=== PATIENT | male | born 1960 | race Caucasian/White ===

== ENCOUNTER 2020-04-27 12:10 | Inpatient (IN) | payer OTHER ==
[~2020-04-27] VITALS: Ht 182.9 cm; Wt 124.3 kg
[2020-04-28 00:43] VITALS: BP 118/56
[2020-04-28 01:56] LABS: HEMOGLOBIN 14.7 gm/dL (14.0-18.0); MCHC 33.3 g/dL (28.0-37.0); RBC 4.73 mil/uL (4.50-6.00); RDW 14.1 % (10.5-14.5); WBC 8.7 thou/uL (4.0-11.0)
[2020-04-28 02:05] LABS: APTT 31.6 Seconds (24.5-32.8); PROTIME 10.5 Seconds (9.3-11.4)
[2020-04-28] MEDS ORDERED: ATORVASTATIN CA80 MG PO (02:29)
[2020-04-28] MEDS ORDERED: ASA81BEC PO (02:29)
[2020-04-28] MEDS ORDERED: EFFIENT10 MG PO (02:30)
[2020-04-28] MEDS ORDERED: JENTADUETO 2.51 EAC2 PO (02:31)
[2020-04-28] MEDS ORDERED: LOPRESSOR50 PO (02:33)
[2020-04-28] MEDS ORDERED: ZESTRIL10 MG PO (02:34)
[2020-04-28 05:15] VITALS: BP 112/58
--- NOTE | 2020-04-28 05:57 | NUR ---
PATIENT ARRIVED AT 0030 PER EMS FROM [facility]. ADMISSION PROCESS COMPLETE. RESTARTED HEPERIN GTTS PER PROTOCOL. MEDS GIVEN PER EMAR. PT UP AD YANCI TO BATHROOM; STEADY GAIT. PLANS FOR OPEN HEART SURGERY MONDAY. NO OTHER COMPLAINTS OF CHEST PAIN. CONTINUING TO ASSESS ACCORDING TO POC.
[2020-04-28 09:51] VITALS: BP 111/61
[2020-04-28 12:42] VITALS: BP 136/55
--- NOTE | 2020-04-28 14:10 | NUR ---
RECIEVED REPORT FROM DAVID HICKMAN.
[2020-04-28 16:40] VITALS: BP 115/66
--- NOTE | 2020-04-28 17:19 | NUR ---
Patient admits as transfer from [facility]. 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 He reports employment aware he is at hospital. PCP Dr Meadows. Patient reports lives in independent home with . Few steps to enter home then all needs on one level. able to assist at dc. Casemgt following.
[2020-04-28 19:31] VITALS: BP 125/64
[2020-04-29] VITALS (28 sets, daily range): BP systolic 99–142; BP diastolic 52–78
--- NOTE | 2020-04-29 07:35 | NUR ---
PATIEINTS CARES WERE ASSUMED AT SHIFT CHANGE. PATIENT WAS ASSESSED AND MEDS WERE PASSED. PATIENT WAS CLEANSED FOR SURGERY AT 2230 AND AGAIN AT 0530. WITH LINENS CHENGED AND THE GOWN. PATIENT WAS PICKED UP BY PACU AT 0600 FOR SURGERY.PATIENT HAD AN UNEVENTFUL NIGHT.
[2020-04-29 11:43] LABS: MCH 30.7 pg (26.0-34.0); RBC 2.78 mil/uL (4.50-6.00); WBC 12.8 thou/uL (4.0-11.0)
[2020-04-29 11:51] LABS: HEMOGLOBIN 8.5 gm/dL (14.0-18.0)
[2020-04-29 11:52] LABS: HEMATOCRIT 25.9 % (42.0-52.0)
[2020-04-29 11:57] LABS: FIBRINOGEN 135.3 mg/dL (210-360); PROTIME 16.7 Seconds (9.3-11.4)
[2020-04-29 12:11] LABS: APTT 27.5 Seconds (24.5-32.8); INR 1.6
[2020-04-29 12:22] LABS: POC BE -8 mmol/L (-2.0 to +3.0); POC CA IONIZED 3.2 mg/dL (4.5-5.3); POC GLUCOSE 105 mg/dL (70-99); POC HCO3 17.7 mmol/L (22.0-26.0); POC HEMOGLOBIN 8.8 g/dL (14.0-18.0); POC POTASSIUM 2.8 mmol/L (3.5-5.1); POC SODIUM 149 mmol/L (136-145); POC pCO2 32.1 mmHg (35.0-45.0); POC pH 7.351 (7.360-7.450)
[2020-04-29 12:22] LABS: POC BE -1 mmol/L (-2.0 to +3.0); POC CA IONIZED 5.1 mg/dL (4.5-5.3); POC GLUCOSE 143 mg/dL (70-99); POC HCO3 24.9 mmol/L (22.0-26.0); POC HEMOGLOBIN 12.9 g/dL (14.0-18.0); POC POTASSIUM 4.1 mmol/L (3.5-5.1); POC SODIUM 138 mmol/L (136-145); POC pCO2 44.5 mmHg (35.0-45.0); POC pH 7.356 (7.360-7.450)
[2020-04-29 12:22] LABS: POC BE 0 mmol/L (-2.0 to +3.0); POC CA IONIZED 4.9 mg/dL (4.5-5.3); POC GLUCOSE 145 mg/dL (70-99); POC HCO3 25.2 mmol/L (22.0-26.0); POC HEMOGLOBIN 14.6 g/dL (14.0-18.0); POC POTASSIUM 4.3 mmol/L (3.5-5.1); POC SODIUM 138 mmol/L (136-145); POC pCO2 42.3 mmHg (35.0-45.0); POC pH 7.384 (7.360-7.450)
[2020-04-29 12:22] LABS: POC BE -2 mmol/L (-2.0 to +3.0); POC CA IONIZED 4.5 mg/dL (4.5-5.3); POC GLUCOSE 149 mg/dL (70-99); POC HCO3 22.9 mmol/L (22.0-26.0); POC HEMOGLOBIN 11.6 g/dL (14.0-18.0); POC POTASSIUM 4.1 mmol/L (3.5-5.1); POC SODIUM 136 mmol/L (136-145); POC pCO2 38.3 mmHg (35.0-45.0); POC pH 7.385 (7.360-7.450)
[2020-04-29 12:22] LABS: POC BE -1 mmol/L (-2.0 to +3.0); POC CA IONIZED 4.5 mg/dL (4.5-5.3); POC GLUCOSE 147 mg/dL (70-99); POC HCO3 24.2 mmol/L (22.0-26.0); POC HEMOGLOBIN 12.6 g/dL (14.0-18.0); POC POTASSIUM 3.9 mmol/L (3.5-5.1); POC SODIUM 138 mmol/L (136-145); POC pCO2 39.1 mmHg (35.0-45.0); POC pH 7.399 (7.360-7.450)
[2020-04-29 12:22] LABS: POC BE 1 mmol/L (-2.0 to +3.0); POC CA IONIZED 4.3 mg/dL (4.5-5.3); POC GLUCOSE 131 mg/dL (70-99); POC HCO3 25.5 mmol/L (22.0-26.0); POC HEMOGLOBIN 12.2 g/dL (14.0-18.0); POC POTASSIUM 4.1 mmol/L (3.5-5.1); POC SODIUM 136 mmol/L (136-145); POC pCO2 40.5 mmHg (35.0-45.0); POC pH 7.407 (7.360-7.450)
[2020-04-29 12:22] LABS: POC BE -1 mmol/L (-2.0 to +3.0); POC CA IONIZED 4.8 mg/dL (4.5-5.3); POC GLUCOSE 147 mg/dL (70-99); POC HCO3 24.8 mmol/L (22.0-26.0); POC HEMOGLOBIN 14.6 g/dL (14.0-18.0); POC POTASSIUM 3.8 mmol/L (3.5-5.1); POC SODIUM 139 mmol/L (136-145); POC pCO2 44.5 mmHg (35.0-45.0); POC pH 7.354 (7.360-7.450)
[2020-04-29 12:22] LABS: POC BE -10 mmol/L (-2.0 to +3.0); POC CA IONIZED 2.3 mg/dL (4.5-5.3); POC GLUCOSE 85 mg/dL (70-99); POC HCO3 16.1 mmol/L (22.0-26.0); POC HEMOGLOBIN 7.5 g/dL (14.0-18.0); POC POTASSIUM 2.2 mmol/L (3.5-5.1); POC SODIUM 155 mmol/L (136-145); POC pCO2 30.2 mmHg (35.0-45.0); POC pH 7.334 (7.360-7.450)
[2020-04-29 12:25] LABS: CALCIUM 8.8 mg/dL (8.5-10.1); CREATININE 1.4 mg/dL (0.7-1.3)
[2020-04-29 12:26] LABS: POTASSIUM 4.4 mmol/L (3.5-5.1)
[2020-04-29 12:31] LABS: ALBUMIN 3.1 g/dL (3.4-5.0); TOTAL BILIRUBIN 0.4 mg/dL (0.2-1.0); TOTAL PROTEIN 5.6 g/dL (6.4-8.2)
[2020-04-29 13:20] LABS: HEMATOCRIT 42.2 % (42.0-52.0); MCH 30.5 pg (26.0-34.0); MCV 92.2 fL (80.0-100.0); RBC 4.58 mil/uL (4.50-6.00); RDW 14.3 % (10.5-14.5); WBC 21.8 thou/uL (4.0-11.0)
[2020-04-29 13:20] LABS: BE(vivo) -6.7 mmol/L (-2 to +3); HCO3 18.9 mmol/L (22.0-26.0); PCO2 38.2 mmHg (35.0-45.0); PO2 86.1 mmHg (80.0-100.0); sO2 95.8 % (92.0-98.0)
[2020-04-29 13:21] LABS: pH 7.312 (7.360-7.450)
--- NOTE | 2020-04-29 13:30 | NUR ---
1250 PATIENT ADMITTED TO ICU BED 249 DIRECTLY FROM THE OR POST CABG X2. ACCOMPANIED BY DR MADDEN, AND THE OR TEAM. ATTACHED TO VILIGIANT MONITOR, PATIENT FINANCIAL REP, SWAN AT 58-59 CM MURIEL IN THE LRA, ZEROED AND CALIBRATED. CHEST TUBE X3 TO SUCTION, NO TITLING NOTED. LAB AND ABG DRAWN. BLOOD GLUCOSE 186 AND INSULIN DRIP STARTED AT 1305. EKG DONE AT BEDSIDE. PATIENT IS DROWSEY, REASSURANCE GIVEN NODS AND SHAKES HIS HEAD.
[2020-04-29 13:32] LABS: CALCIUM 8.8 mg/dL (8.5-10.1); CREATININE 1.4 mg/dL (0.7-1.3); MAGNESIUM 2.4 mg/dL (1.8-2.4); POTASSIUM 4.6 mmol/L (3.5-5.1)
[2020-04-29 13:34] LABS: APTT 24.5 Seconds (24.5-32.8); INR 1.1; PROTIME 11.4 Seconds (9.3-11.4)
[2020-04-29 15:21] LABS: HCO3 15.7 mmol/L (22.0-26.0); PCO2 27.7 mmHg (35.0-45.0); PO2 157.2 mmHg (80.0-100.0)
--- NOTE | 2020-04-29 15:40 | EKG ---
[place] [address] [facility] [place] [address] ELECTROCARDIOGRAM REPORT Name: BEN JANE Room #: 249-P ADM IN M.R.#: [id number] Admission: 04/28/20 Attend Phys: Elmer Garcias MD Discharge: Date of : 62 Report #: [id number] [facility] Test Date: 2020-04-29 Test Time: 13:25:42 Pat Name: BEN JANE Department: Room: 249 P Gender: M Injection Molder: GIOVANNI : 1960 Requested By: Jam Aguilar Order Number: [id number] : Ruiz Yang Measurements Intervals [place] Rate: 86 P: 40 DE: 186 QRS: -75 QRSD: 119 T: 41 QT: 400 QTc: 479 Interpretive Statements Sinus rhythm Left anterior fascicular block Compared to ECG 04/28/2020 07:48:03 Sinus bradycardia no longer present Poor R-wave progression no longer present T-wave abnormality no longer present Electronically Signed On 04-29-2020 15:40:20 SOW FARM MANAGER by Ruiz Yang [email or web address] <ELECTRONICALLY SIGNED> By: Ruiz Yang MD, [facility] 04/29/20 1540 1325 1325 Ruiz Yang MD, [facility] /EPI
[2020-04-29 16:11] LABS: BE(vivo) -12.7 mmol/L (-2 to +3); PO2 108.8 mmHg (80.0-100.0); sO2 97.6 % (92.0-98.0)
[2020-04-29 16:14] LABS: PCO2 24.7 mmHg (35.0-45.0); pH 7.303 (7.360-7.450)
--- NOTE | 2020-04-29 16:18 | NUR ---
Chart reveiwed. Pt is now in ICU s/p CABGx2. Will follow along should dc needs arise.
--- NOTE | 2020-04-29 16:21 | NUR ---
DR MERCADO BY AT 1500. PATIENT AWAKE AND FOLLOWING COMMANDS. RT HERE TO DECREASE FI02 TO 50% AND PLACED PATIENT ON CPAP. PATIENT PUSHING ETT OUT WITH HIS TONGUE, ABG'S REPEATED AND CALLED TO DR MERCADO AND UPDATED ON PATIENT'S RESPIRATORY STATUS. PATIENT EXTUBATED TO 60% FS WITHOUT INCIDENT.
--- NOTE | 2020-04-29 19:26 | NUR ---
PATIENT IS PROGRESSING TOWARDS OUTCOME GOALS EVIDENT BY. EXTUBATED AT 1621 AND O2 WEANED FROM 60% FS TO 5L/NC. TOLERATING ICE CHIPS WITHOUT NAUSEA OR EMESIS. REMAINS ON THE INSULIN DRIP. PATIENT'S IN TO VISIT, UPDATED ON HER 'S CONDITION AND POC AND GIVEN THE CODE FOR INFORMATION. PAIN MANAGEMENT ADDRESS, FENTENYL GIVEN WITH SOME RELIEF, REPOSITIONED FOR COMFORT. WILL CONTINUE TO MONITOR.
[2020-04-30] VITALS (12 sets, daily range): BP systolic 103–137; BP diastolic 57–76
[2020-04-30 05:36] LABS: CALCIUM 8.4 mg/dL (8.5-10.1); CREATININE 1.4 mg/dL (0.7-1.3); MAGNESIUM 2.1 mg/dL (1.8-2.4)
[2020-04-30 05:43] LABS: HEMATOCRIT 43.5 % (42.0-52.0); HEMOGLOBIN 14.2 gm/dL (14.0-18.0); MCH 30.5 pg (26.0-34.0); MCHC 32.7 g/dL (28.0-37.0); MCV 93.3 fL (80.0-100.0); RBC 4.67 mil/uL (4.50-6.00); RDW 14.3 % (10.5-14.5); WBC 13.4 thou/uL (4.0-11.0)
--- NOTE | 2020-04-30 07:24 | EKG ---
[address] [place] [address] ELECTROCARDIOGRAM REPORT Name: BEN JANE Room #: 249-P ADM IN M.R.#: [id number] Admission: 04/28/20 Attend Phys: Elmer Garcias MD Discharge: Date of : 62 Report #: [id number] [facility] Test Date: 2020-04-30 Test Time: 07:16:57 Pat Name: BEN JANE Department: Room: 249 P Gender: M String Cutter: GIOVANNI : 1960 Requested By: Jam Aguilar Order Number: [id number] MD: Ruiz Yang Measurements Intervals [place] Rate: 90 P: -21 [place]: 164 QRS: -71 QRSD: 104 T: 48 QT: 396 QTc: 485 Interpretive Statements Sinus rhythm Abnormal R-wave progression, early transition Inferior infarct, old Compared to ECG 04/29/2020 13:25:42 Myocardial infarct finding now present Left anterior fascicular block no longer present Electronically Signed On 04-30-2020 7:24:11 WOODEN BARREL MECHANIC by Ruiz Yang [email or web address] <ELECTRONICALLY SIGNED> By: Ruiz Yang MD, [facility] 04/30/20723 5 5 Ruiz Yang MD, [facility] /EPI
--- NOTE | 2020-04-30 08:33 | NUR ---
Nutrition: S/P CABG x 2. Consult received. Will followup when out of ICU and closer to D/C to determine education needs.
--- NOTE | 2020-04-30 12:31 | NUR ---
ON-GOING ASSESSMENT: CM REVIEWED CHART. PT REMAINS ON 12L OXYGEN. 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 PT WAS ABLE TO PARTICIPATE WITH THERAPY TODAY AND THEY ARE ANTICIPATING HE WILL BE ABLE TO PROGRESS AND DISCHARGE HOME WITH FAMILY. CM WILL CONTINUE TO FOLLOW TO ASSIST NEEDED.
--- NOTE | 2020-04-30 16:10 | NUR ---
A-LINE DC'D THIS AFTERNOON, ORDERS TO TRANSFER RECEIVED. REPORT CALLED TO MARYLOU SMITH IN CCU AND PATIENT TRANSFERRED TO 209 ACCOMPANIED BY AND BELONGINGS WITH PATIENT.
[2020-05-01 04:20] VITALS: BP 133/81
[2020-05-01 06:22] LABS: HEMATOCRIT 40.3 % (42.0-52.0); HEMOGLOBIN 13.4 gm/dL (14.0-18.0); MCHC 33.2 g/dL (28.0-37.0); MCV 93.5 fL (80.0-100.0); RBC 4.31 mil/uL (4.50-6.00); RDW 14.5 % (10.5-14.5); WBC 14.2 thou/uL (4.0-11.0)
--- NOTE | 2020-05-01 06:33 | NUR ---
PATIENT SLEPT SOME OF THE NIGHT. A&OX4. FALL PRECAUTIONS IN PLACE. MEDS GIVEN PER ORDERS. TOLERATING SITTING UP IN THE CHAIR UP UNTIL BEDTIME. PT UNCOMFORTABLE MOST OF THE SHIFT; STATED MORE COMFORTABLE IN BED. CHEST TUBE REMAINS IN PLACE AND INTACT. PROGRESSING TOWARDS DISCHARGE. CONTINUING TO ASSESS CLOSESLY ACCORDING TO POC.
[2020-05-01 06:41] LABS: CALCIUM 8.6 mg/dL (8.5-10.1); CREATININE 1.2 mg/dL (0.7-1.3); POTASSIUM 4.2 mmol/L (3.5-5.1)
[2020-05-01 07:55] VITALS: BP 144/80
[2020-05-01 12:20] VITALS: BP 116/64
[2020-05-01 16:05] VITALS: BP 94/51
--- NOTE | 2020-05-01 19:47 | NUR ---
ASSUMED CARE OF PT AT SHIFT CHANGE. ASSESSMENTS CHARTED. MEDS GIVEN PER JUL. PT A&OX4, C/O PAIN TREATED WITH PO AND IV MEDS WITH PARTIAL RELIEF. MOLINA AND CHEST TUBE DC'D WITHOUT COMPLICATION. WILL CONTINUE TO MONITOR AND FOLLOW POC.
[2020-05-01 20:00] VITALS: BP 98/55
[2020-05-02] VITALS (9 sets, daily range): BP systolic 91–117; BP diastolic 52–67
--- NOTE | 2020-05-02 03:42 | NUR ---
Assumed pt care at 1900. Pt is alert and oriented. No sign of distress noted in pt. Pt is laying in bed. Initially denies pain but upon moving, pt verbalized pain to inicision site. Pain med administered upon request. Fall precaution in place. Assessment completed and documented. Scheduled meds administered to pt. Pain management. Continue to monitor. No further needs at this time. No acute events overnight.
--- NOTE | 2020-05-02 12:44 | O ---
[facility] [place] [address] OPERATIVE REPORT Name: BEN JANE Room #: 209-P ADM IN M.R.#: [id number] Admission: 04/28/20 Attend Phys: Elmer Garcias MD Discharge: Date of : 62 Report #: [id number] THIS REPORT FOR: cc: Physician not on staff Physician not on staff Galen Arce MD ~ DATE OF SERVICE: 04/29/2020 PREOPERATIVE DIAGNOSIS: Coronary artery disease. POSTOPERATIVE DIAGNOSIS: Coronary artery disease. OPERATION: Coronary artery bypass x 2 including left internal mammary artery to left anterior descending artery and saphenous vein to marginal 1 and endoscopic harvest, left greater saphenous vein. SURGEON: Dr. Glaen Arce AFTER SCHOOL CAREGIVER: SUKH Gibson ANESTHESIA: General. INDICATIONS: The patient is a 60-year-old transferred from [facility] for coronary artery bypass surgery. The patient had cardiac catheterization by Dr. Chance Bustos that showed subtotal occlusion of the left anterior descending and a high-grade lesion in the first marginal artery. There was trivial disease in other vessels. Left ventricular function is satisfactory. Left anterior descending had had previous stent placement, but these had all, but occluded. FINDINGS AND TECHNIQUE: After general anesthesia was established, saphenous vein was harvested using an endoscopic approach and prepared for use as a conduit. Exposure was obtained through median sternotomy. Left internal mammary artery was harvested from chest wall. Pericardial well was made. Cannulation sutures were placed. Heparin was given. Aorta was cannulated. Right atrium was cannulated. Cardioplegia needle was positioned in the aortic root. Retrograde cardioplegic catheter was placed in coronary sinus. Cardiopulmonary bypass was established. The aorta was cross clamped. Antegrade and retrograde cardioplegia were given. Ice was poured into the pericardial well. The heart was stopped. During electromechanical arrest, the distal anastomoses were performed and end-to-side anastomosis was made between vein and the first marginal. [facility] [address] [place] [address] OPERATIVE REPORT Name: BEN JANE Room #: 209-P [facility] IN [facility].#: [id number] Admission: 04/28/20 Attend Phys: Elmer Garcias MD Discharge: Date of : 62 Report #: [id number] cardioplegia was given. Left internal mammary artery was sewn in end-to-side fashion to the left anterior descending artery. The anastomosis was checked with the temperature technique and with the Doppler. Cold cardioplegia was given. One proximal anastomosis was performed. When this was complete, warm retrograde cardioplegia was given followed by warm continuous blood to the coronary sinus. When this infusion was complete, the crossclamp was removed, de-airing maneuvers were performed. The anastomoses were inspected and found to be satisfactory. As the patient warmed, nice cardiac activity resumed, chest tubes and pacing wires were placed, a marker was placed around the proximal anastomoses. When the patient was warm, he was weaned from cardiopulmonary bypass. Venous cannula was removed. Protamine was given, the aortic cannula was removed. Flows were measured in the bypass grafts. When hemostasis was satisfactory, chest was irrigated with antibiotic solution and closed in the usual fashion. The patient was taken to the Intensive Care Unit in good condition having tolerated the procedure well. All counts reported as correct. <ELECTRONICALLY SIGNED> By: Galen Arce MD 05/02/20 1244 1947 01 Galen Arce MD /nt
--- NOTE | 2020-05-02 18:25 | NUR ---
ASSUMMED PT CARE AT APPROXIMATELY 0700. PT A&O X4. ASSESSMENT CHARTED. FALL PRECAUTIONS IN PLACE. PT DENIES HAVING CHEST PAIN. PT STATED SHE HAD SOB ON EXERSION. PT O2 SAT STABLE. PT STATED HE HAD STERNAL PAIN. PT RECEIVED ANALGESICS. PT STATED ANALGESICS HELPED RELEIVE PAIN. VITAL SIGNS STABLE. BLOOD SUGARS STABLE. PT AMBULATED STEADY X1 AROUND UNIT C PHYSICAL THERAPY TODAY. STERNAL PRECAUTIONS IN PLACE. WOUND VAC DRESSING C/D/I. EDUCATED PT AND PT'S FAMILY ABOUT POC. PT AND PT'S FAMILY STATED UNDERSTANDING AND DENIED HAVING FURTHER CONCERNS. PT UP TO CHAIR THROUGHOUT SHIFT. PT COMFORTABLE. PT DENIES HAVING FURTHER CONCERNS.
--- NOTE | 2020-05-03 03:34 | NUR ---
Assumed pt care at 1900. Pt is alert and oriented. No sign of distress noted in pt. Pt is laying in bed. Fall precaution in place. Assessment completed and documented. Scheduled meds administered to pt. No acute events overnight. Pain med administered upon request. Continue to monitor. No further needs at this time
[2020-05-03 03:40] VITALS: BP 108/56
[2020-05-03 05:02] LABS: HEMATOCRIT 35.3 % (42.0-52.0); HEMOGLOBIN 11.7 gm/dL (14.0-18.0); MCH 30.9 pg (26.0-34.0); MCHC 33.1 g/dL (28.0-37.0); MCV 93.3 fL (80.0-100.0); RBC 3.79 mil/uL (4.50-6.00); RDW 14.2 % (10.5-14.5); WBC 9.1 thou/uL (4.0-11.0)
[2020-05-03 05:04] LABS: CALCIUM 8.6 mg/dL (8.5-10.1); CREATININE 1.3 mg/dL (0.7-1.3); POTASSIUM 4.6 mmol/L (3.5-5.1)
[2020-05-03 08:00] VITALS: BP 133/55
[2020-05-03 12:00] VITALS: BP 104/52
[2020-05-03 15:50] VITALS: BP 115/51
--- NOTE | 2020-05-03 17:19 | NUR ---
ASSUMED CARE OF PT AT SHIFT CHANGE. ASSESSMENTS CHARTED. MEDS GIVEN PER JUL. PT A&OX4, C/O PAIN TREATED WITH PO AND IV MEDS WITH PARTIAL RELIEF. AMBULATES IN HENDRICKS, ON 2L NC. WILL CONTINUE TO MONITOR AND FOLLOW POC.
[2020-05-03 19:26] VITALS: BP 108/68
--- NOTE | 2020-05-03 21:33 | EKG ---
[place] [address] [place] [address] ELECTROCARDIOGRAM REPORT Name: BEN JANE Room #: 209-P ADM IN M.R.#: [id number] Admission: 04/28/20 Attend Phys: Elmer Garcias MD Discharge: Date of : 62 Report #: [id number] [facility] Test Date: 2020-05-03 Test Time: 09:06:56 Pat Name: BEN JANE Department: Room: 209 P Gender: M Integrated Marketing Specialist: : 1960 Requested By: Jam Aguilar Order Number: [id number] MD: Donell Dumas Measurements Intervals [place] Rate: 81 P: 39 ME: 159 QRS: -48 QRSD: 115 T: 56 QT: 408 QTc: 474 Interpretive Statements Sinus rhythm Unusual R force in V2 consider lead placement Nonspecific IVCD with LAD Inferior infarct, old Consider anterior infarct in view of loss of R waves from prior ECG Baseline wander in lead(s) V1,V2,V6 Compared to ECG 04/30/2020 07:16:57 Intraventricular conduction delay now present Myocardial infarct finding still present Electronically Signed On 05-03-2020 21:33:40 SWEATBAND DRUMMER by Donell Dumas [email or web address] <ELECTRONICALLY SIGNED> By: Donell Dumas MD 05/03/20 2133 5 5 Donell Dumas MD /EPI
--- NOTE | 2020-05-04 03:45 | NUR ---
Assumed pt care at 1900. Pt is alert and oriented. No sign of distress noted in pt. Pt continues to have pain, pain is controlled with pain medication upon request. Assessment completed and documented. Fall precaution in place. Pt is stable through the night. Scheduled meds administered to pt. No acute event overnight. Wound vac still in place. No further needs at this time.
[2020-05-04 03:51] LABS: HEMATOCRIT 34.1 % (42.0-52.0); HEMOGLOBIN 11.5 gm/dL (14.0-18.0); MCH 31.4 pg (26.0-34.0); MCHC 33.6 g/dL (28.0-37.0); MCV 93.5 fL (80.0-100.0); RBC 3.65 mil/uL (4.50-6.00); RDW 13.8 % (10.5-14.5); WBC 8.6 thou/uL (4.0-11.0)
[2020-05-04 04:27] VITALS: BP 124/61
--- NOTE | 2020-05-04 07:55 | EKG ---
[place] [address] [facility] [place] [address] ELECTROCARDIOGRAM REPORT Name: BEN JANE Room #: 209-P ADM IN M.R.#: [id number] Admission: 04/28/20 Attend Phys: Elmer Garcias MD Discharge: Date of : 62 Report #: [id number] [facility] Test Date: 2020-04-28 Test Time: 07:48:03 Pat Name: BEN JANE Department: Room: 211 P Gender: M Ad Compositor: GIOVANNI : 1960 Requested By: Inessa Vazquez Order Number: [id number] MD: Samir Cummings Measurements Intervals [place] Rate: 54 P: 29 OR: 192 QRS: -64 QRSD: 120 T: 8 QT: 434 QTc: 412 Interpretive Statements Sinus bradycardia Left anterior fascicular block Poor R wave progression Anterior T wave abnormality No previous ECG available for comparison Electronically Signed On 04-28-2020 7:51:49 BREAKER UNIT ASSEMBLER by Samir Cummings [email or web address] <ELECTRONICALLY SIGNED> By: Samir Cummings MD, [facility] 04/28/20 0751 0748 0748 Samir Cummings MD, [facility] /EPI
[2020-05-04 08:08] VITALS: BP 138/64
[2020-05-04 11:45] VITALS: BP 104/54
[2020-05-04 15:51] VITALS: BP 119/53
--- NOTE | 2020-05-04 16:02 | NUR ---
ASSUMED CARE OF PT AT SHIFT CHANGE. ASSESSMENTS CHARTED. MEDS GIVEN PER JUL. PT A&OX4, C/O PAIN TREATED WITH PO MEDS. PT ON RA AND AMBULATING IN THE HENDRICKS. PLAN TO DISCHARGE TOMORROW. WILL CONTINUE TO MONITOR AND FOLLOW POC.
[2020-05-04 21:00] VITALS: BP 118/58
[2020-05-05] VITALS: BP 120/59
--- NOTE | 2020-05-05 03:41 | NUR ---
CARE ASSUMED 1900. PT S/P CABG POST OP DAY 6 NOW. ALERT AND ORIENTED. VITALS STABLE. NO NAUSEA, SOB REPORTED. PT CONTINUE TO HAVE STERNAL CHEST PAINS RATING 7 TO 8, UNCONTROLLED BY ORAL ANALGESICS. FENTANYL X 1 GIVEN. PT HAS AN IS, ACHIEVING 1500 ML VOLUME. PT REFUSED ACDs. WILL CONTINUE TO MONITOR AND FOLLOW POC.
[2020-05-05 04:00] VITALS: BP 129/80
[2020-05-05 07:43] VITALS: BP 133/75
[2020-05-05] MEDS ORDERED: FERREX 150 PLU1 EAC1 PO (07:45)
[2020-05-05] MEDS ORDERED: METOPROLOL TART25 MG PO (07:46)
[2020-05-05 11:27] VITALS: BP 133/75
[2020-05-05 11:51] VITALS: BP 112/62
--- NOTE | 2020-05-05 13:22 | NUR ---
ASSUMED CARE OF PT AT SHIFT CHANGE. ASSESSMENTS CHARTED MEDS GIVEN PER JUL. PT A&OX4, C/O PAIN TREATED WITH PO MEDS WITH PARTIAL RELIEF. DISCHARGE ORDERS AND INSTRUCTIONS COMPLETE. IV AND TELE DC'D. PT WALKED WITH THIS NURSE TO THE ER ENTRANCE TO [facility] WAITING CAR.
[2020-05-05 13:25] VITALS: BP 133/75
== END 2020-05-05 12:00 | disposition home or self-care (01) | DRG 235 ==
LOC: PRE 12:10 → 2N 04-28 00:39 → ICU 04-29 13:03 → 2N 04-30 15:45
PROVIDERS: Nurse Practitioner Family; Physician Assistant; Surgery Vascular Surgery; ADMIT Hospitalist; ATTEND Hospitalist
PROC: 4A133B1 Monitoring of Arterial Pressure, Peripheral, Percutaneous Approach (ICD-10-PCS; principal; 2020-04-29)
PROC: 5A1935Z Respiratory Ventilation, Less than 24 Consecutive Hours (ICD-10-PCS; principal; 2020-04-29)
PROC: 5A1221Z Performance of Cardiac Output, Continuous (ICD-10-PCS; principal; 2020-04-29)
PROC: 4A133J1 Monitoring of Arterial Pulse, Peripheral, Percutaneous Approach (ICD-10-PCS; principal; 2020-04-29)
PROC: 021009W Bypass Coronary Artery, One Artery from Aorta with Autologous Venous Tissue, Open Approach (ICD-10-PCS; principal; 2020-04-29)
PROC: 03HY32Z Insertion of Monitoring Device into Upper Artery, Percutaneous Approach (ICD-10-PCS; principal; 2020-04-29)
PROC: 06BQ4ZZ Excision of Left Saphenous Vein, Percutaneous Endoscopic Approach (ICD-10-PCS; principal; 2020-04-29)
PROC: 0BH17EZ Insertion of Endotracheal Airway into Trachea, Via Natural or Artificial Opening (ICD-10-PCS; principal; 2020-04-29)
PROC: 02100Z9 Bypass Coronary Artery, One Artery from Left Internal Mammary, Open Approach (ICD-10-PCS; principal; 2020-04-29)
PROC: 5A0935A Assistance with Respiratory Ventilation, Less than 24 Consecutive Hours, High Flow/Velocity Cannula (ICD-10-PCS; 2020-04-30)
PROC: 5A0935A Assistance with Respiratory Ventilation, Less than 24 Consecutive Hours, High Flow/Velocity Cannula (ICD-10-PCS; 2020-05-01)
DX: I25.10 Atherosclerotic heart disease of native coronary artery without angina pectoris (principal); J96.01 Acute respiratory failure with hypoxia; I10 Essential (primary) hypertension; E11.9 Type 2 diabetes mellitus without complications; K21.9 Gastro-esophageal reflux disease without esophagitis; G47.33 Obstructive sleep apnea (adult) (pediatric); E78.5 Hyperlipidemia, unspecified; F41.9 Anxiety disorder, unspecified; D72.829 Elevated white blood cell count, unspecified; M19.90 Unspecified osteoarthritis, unspecified site; Z87.891 Personal history of nicotine dependence; Z95.5 Presence of coronary angioplasty implant and graft; I25.2 Old myocardial infarction
CPT/HCPCS: 10078; 10081; 47000; 47001; 47002; 47297; 50010; 50249; 50409; 50456; 50498; 50643; 50668; 50953; 51301; 52131; 52259; 52287; 52314; 53327; 53358; 54118; 56455; 56524; 56525; 56526; 56527; 56528; 56531; 56534; 56668; 56719; 56760; 56898; 57093; 57167; 62110; 62950; 65003; 65020; 65090; 65131; 65135; 83006

== ENCOUNTER 2020-05-14 16:54 | Inpatient (IN) | payer OTHER ==
[~2020-05-14] VITALS: Ht 182.9 cm; Wt 118.3 kg
[~2020-05-14 16:54] MED LIST: ASA81BEC PO; ATORVASTATIN CA80 MG PO; EFFIENT10 MG PO; FERREX 150 PLU1 EAC1 PO; JENTADUETO 2.51 EAC2 PO; LOPRESSOR50 PO; METOPROLOL TART25 MG PO; ZESTRIL10 MG PO
[2020-05-14 17:19] VITALS: BP 134/77
[2020-05-14 18:41] LABS: BASOPHILS 0.9 % (0.0-2.0); EOSINOPHILS 3.2 % (0.0-3.0); HEMATOCRIT 38.4 % (42.0-52.0); HEMOGLOBIN 12.7 gm/dL (14.0-18.0); LYMPHOCYTES 12.2 % (24.0-44.0); MCH 30.2 pg (26.0-34.0); MCHC 32.9 g/dL (28.0-37.0); MCV 91.6 fL (80.0-100.0); MONOCYTES 5.4 % (1.0-8.0); PLATELET COUNT 396 thou/uL (150-400); POLYS 78.3 % (36.0-66.0); RBC 4.19 mil/uL (4.50-6.00); RDW 14.2 % (10.5-14.5); WBC 12.7 thou/uL (4.0-11.0)
[2020-05-14 18:51] LABS: CALCIUM 9.8 mg/dL (8.5-10.1); CREATININE 1.4 mg/dL (0.7-1.3); POTASSIUM 4.6 mmol/L (3.5-5.1)
[2020-05-14 18:56] LABS: ALBUMIN 3.4 g/dL (3.4-5.0); DIRECT BILIRUBIN 0.1 mg/dL (<0.1-0.2); TOTAL BILIRUBIN 0.5 mg/dL (0.2-1.0)
--- NOTE | 2020-05-14 21:40 | NUR ---
PT WEIGHT MEASURED BY BED 123.3KG, REPORTED TO PHARMACY
[2020-05-15 06:22] LABS: URINE BILIRUBIN NEGATIVE (Negative); URINE BLOOD NEGATIVE (Negative); URINE CLARITY CLEAR; URINE COLOR YELLOW; URINE GLUCOSE-RANDOM* NEGATIVE (Negative); URINE KETONES 1+ (Negative); URINE LEUKOCYTES-REFLEX NEGATIVE (Negative); URINE NITRITE-REFLEX NEGATIVE (Negative); URINE PROTEIN (DIPSTICK) NEGATIVE (Negative); URINE SPECIFIC GRAVITY 1.015 (1.005-1.035); URINE UROBILINOGEN 0.2 E.U./dl (0.2-1.0)
[2020-05-15 09:29] LABS: HEMOGLOBIN 12.5 gm/dL (14.0-18.0); MCH 30.2 pg (26.0-34.0); MCHC 32.8 g/dL (28.0-37.0); MCV 91.9 fL (80.0-100.0); RBC 4.14 mil/uL (4.50-6.00); RDW 14.1 % (10.5-14.5); WBC 9.9 thou/uL (4.0-11.0)
[2020-05-15 09:53] LABS: ALBUMIN 3.1 g/dL (3.4-5.0); CALCIUM 9.6 mg/dL (8.5-10.1); CREATININE 1.3 mg/dL (0.7-1.3); TOTAL BILIRUBIN 0.6 mg/dL (0.2-1.0); TOTAL PROTEIN 7.7 g/dL (6.4-8.2)
--- NOTE | 2020-05-15 15:17 | EKG ---
[place] [address] [facility] [place] [address] ELECTROCARDIOGRAM REPORT Name: BEN JANE Room #: 170-9 ADM IN M.R.#: [id number] Admission: 05/14/20 Attend Phys: Geovanny Cota MD Discharge: Date of : 62 Report #: [id number] [facility] ED Test Date: 2020-05-14 Test Time: 20:41:30 Pat Name: BEN JANE Department: Room: 170 Gender: M Shot Fireman: [email or web address] : 1960 Requested By: Kayode Victor Order Number: [id number] MD: Samir Cummings Measurements Intervals [place] Rate: 86 P: 39 [place]: 164 QRS: -41 QRSD: 122 T: 51 QT: 366 QTc: 438 Interpretive Statements Sinus rhythm Nonspecific IVCD with LAD Inferior infarct, old Consider anterior infarct Compared to ECG 05/03/2020 09:06:56 No significant changes Electronically Signed On 05-15-2020 15:17:31 ELECTROTHERAPIST by Samir Cummings [email or web address] <ELECTRONICALLY SIGNED> By: Samir Cummings MD, [facility] 05/15/20 1517 40 40 Samir Cummings MD, [facility] /EPI
[2020-05-15 16:54] VITALS: BP 135/71
[2020-05-15 17:40] VITALS: BP 131/67
--- NOTE | 2020-05-15 19:22 | NUR ---
RECEIVED PT FROM ER. PT A&O X4. PT EXPERIENCES SHORTNESS OF AIR UPON EXERTION, AND PAIN IN RIGHT KNEE. PT STATES PAIN IS GENERAL DISCOMFORT IN ABDOMEN/CHEST FROM PREVIOUS CABG ON 04/29/2020, AND FROM KNEE. PT POC INCLUDES IMPROVE SHORTNESS OF AIR, USE IS, ABX, DVT PROPHYLAXIS. NO CONCERNS AT THIS TIME.
[2020-05-15 19:26] VITALS: BP 116/60
[2020-05-16] VITALS: BP 112/66
[2020-05-16 04:00] VITALS: BP 116/68
--- NOTE | 2020-05-16 06:08 | NUR ---
ASSUME CARE 1900. PT/VITALS STABLE. INTERMITTENT NON CARDIAC CHEST PAIN NOTED WITH RELIEF FROM HYDROCODONE. GOOD ENDURANCE TO ACTIVITY. STEDY ON FEET. ASSESSMENT CHARTED. PROGRESSING WELL WITH POC. PLAN IS TO CONTINUE WITH ANTICONGULAION AND ABX THERAPY. SR ON MONITOR. NO DISTRESS NOTED THROUGH THE NIGHT. WILL CONTINUE TO MONITOR AD FOLLOW WITH POC
[2020-05-16 07:30] VITALS: BP 114/76
[2020-05-16 12:15] VITALS: BP 131/70
[2020-05-16 15:40] VITALS: BP 117/66
--- NOTE | 2020-05-16 17:27 | NUR ---
PT A&OX4. PT SEEN BY DR CUEVAS. ADDRESSED PT QUESTION REGARDING CURRENT HOME MED REGIMEN. PT INDICATED UNDERSTANDING. PT STATED CURRENT PAIN GENERALIZED IN CHEST/ABDOMEN AREA AND R KNEE. PARTIAL RELIEF WITH MEDICATIONS. PT IS RESTING COMFORTABLY. UP AD YANCI TO TOILET, BUT WILL CALL STBY ASSIST IF NEEDED FOR KNEE. NO CONCERNS AT THIS TIME. FALL PRECAUTIONS IN PLACE.
[2020-05-16 19:00] VITALS: BP 82/61
--- NOTE | 2020-05-17 04:22 | NUR ---
[facility] 1900. PT/VITALS STABLE. INTERMITTENT CHEST PAIN NOTED/HYDROCODONE FOR PAIN RELIEF. GOOD ENDURNCE TO ACTIVITY. NO SOB NOTED. SR ON MONITOR. ASSESSMENT AAS CHARTED. PROGRESSING WELL WITH POC. PLAN IS TO CONTINUE WITH ABX AND ANTICOAGULATION THERAPY. WILL CONTINUE TO MONITOR AND FOLLOW WITH POC
[2020-05-17 06:00] VITALS: BP 135/70
[2020-05-17 07:15] VITALS: BP 115/69
[2020-05-17] MEDS ORDERED: AMOX TR-K CLV1 EAC4 PO (10:41)
[2020-05-17] MEDS ORDERED: PREDNISONE 5 MG5 MG PO (10:41)
[2020-05-17] MEDS ORDERED: XARELTO15 MG PO (10:41)
[2020-05-17] MEDS ORDERED: ACETAMINOPHEN325 M1 PO (10:41)
[2020-05-17] MEDS ORDERED: HYDROCODON-ACE1 EAC7 PO (10:41)
[2020-05-17 14:40] VITALS: BP 115/69
--- NOTE | 2020-05-17 14:50 | NUR ---
PT ALERT AND ORIENTED. PLEASANT. DR UCEVAS SPOKE WITH PT. RT CONDUCTED EXERCISE OXIMETRY AND PT WAS SHORT OF AIR WITH ACTIVITY. DR CUEVAS RECOMMEND HOME O2. DISCHARGE EDUCATION DONE WITH PT. AT THE BEDSIDE. EDUCATION ON NEW HOME O2, NEW PRESCRIPTIONS, AND FOLLOW UP APPT. PT STATED UNDERSTANDING. DISCHARGED TO HOME WITH VIA PERSOANL VEHICLE. NO CONCERNS AT THIS TIME.
== END 2020-05-17 15:31 | disposition home or self-care (01) | DRG 871 ==
LOC: ER 16:54 → 2N 21:15 → EROBS 21:15 → 2N 05-15 17:33
PROVIDERS: Nurse Practitioner; Nurse Practitioner Family; ADMIT Internal Medicine; ATTEND Internal Medicine
DX: A41.9 Sepsis, unspecified organism (principal); I26.99 Other pulmonary embolism without acute cor pulmonale; J18.9 Pneumonia, unspecified organism; B19.10 Unspecified viral hepatitis B without hepatic coma; I25.10 Atherosclerotic heart disease of native coronary artery without angina pectoris; F41.1 Generalized anxiety disorder; E78.5 Hyperlipidemia, unspecified; I10 Essential (primary) hypertension; G47.33 Obstructive sleep apnea (adult) (pediatric); M19.90 Unspecified osteoarthritis, unspecified site; D64.9 Anemia, unspecified; E11.42 Type 2 diabetes mellitus with diabetic polyneuropathy; M10.061 Idiopathic gout, right knee; K21.9 Gastro-esophageal reflux disease without esophagitis; Z20.822 Contact with and (suspected) exposure to COVID-19; Z95.1 Presence of aortocoronary bypass graft; Z95.5 Presence of coronary angioplasty implant and graft; I25.2 Old myocardial infarction; Z79.84 Long term (current) use of oral hypoglycemic drugs; Z79.899 Other long term (current) drug therapy; Z87.891 Personal history of nicotine dependence
CPT/HCPCS: 10081